=== PATIENT | male | born 1985 | race Caucasian/White ===

== ENCOUNTER 2018-03-04 14:18 | Emergency (ER) | payer OTHER ==
[2018-03-04 14:38] VITALS: RESP 18
[2018-03-04] MEDS ORDERED: KETOROLAC 60 MG/2 ML VIAL IM STA (15:20)
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
--- NOTE | 2018-03-04 16:07 | XR ---
EXAMINATION TYPE: XR lumbar spine 2 or 3V DATE OF EXAM: 03/04/2018 CLINICAL HISTORY: Low back pain. Equivocal results on prior CT from earlier the same day. TECHNIQUE: Frontal and lateral images of the lumbar spine are obtained. COMPARISON: CT of the cervical, thoracic, and lumbar spine of the same date. FINDINGS: There are 5 lumbar type vertebral bodies identified. The lumbar spine shows satisfactory alignment without evidence of acute fracture or dislocation. Vertebral body heights and disk space he ights are within normal limits. Mild facet arthropathy seen at L4-5 and L5-S1. There appears to be co ngenital nonunion of the posterior elements of L5. The overlying soft tissue appears unremarkable. IMPRESSION: No acute fracture or dislocation is seen in the lumbar spine. No gross evidence of spino us process fracture of the lumbar spine is questioned on the prior CT.
[2018-03-04 16:49] VITALS: BP 156/74; PULSE 67; TEMP 97.6
== END 2018-03-04 17:14 | disposition home or self-care (01) ==
LOC: EC 14:18
DX: S39.012A Strain of muscle, fascia and tendon of lower back, initial encounter (principal); S20.412A Abrasion of left back wall of thorax, initial encounter; F17.200 Nicotine dependence, unspecified, uncomplicated; Z79.899 Other long term (current) drug therapy; W20.8XXA Other cause of strike by thrown, projected or falling object, initial encounter
CPT/HCPCS: 99283; 96372; 72100; J1885

== ENCOUNTER → 2018-03-04 | Outpatient (CLI) | payer OTHER ==
--- NOTE | 2018-03-04 11:47 | XR ---
EXAMINATION TYPE: XR chest 2V DATE OF EXAM: 03/04/2018 COMPARISON: NONE TECHNIQUE: PA and lateral views submitted. HISTORY: Pain FINDINGS: The lungs are clear and there is no pneumothorax, pleural effusion, or focal pneumonia. Sternum is not well seen. Vertebral column limited. If concern for fracture correlate with CT scan given limitat ion of the exam. IMPRESSION: 1. No acute process.
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
== END | disposition home or self-care (01) ==
LOC: RADCTMAIN 11:18
PROVIDERS: ATTEND Emergency Medicine
DX: S20.221A Contusion of right back wall of thorax, initial encounter (principal); S20.20XA Contusion of thorax, unspecified, initial encounter; S13.4XXA Sprain of ligaments of cervical spine, initial encounter; M50.30 Other cervical disc degeneration, unspecified cervical region; M47.814 Spondylosis without myelopathy or radiculopathy, thoracic region; Q76.0 Spina bifida occulta
CPT/HCPCS: 71046; 72125; 72128; 72131

== ENCOUNTER 2018-06-22 11:00 | Emergency (ER) | payer OTHER ==
[2018-06-22 11:27] VITALS: BP 109/54; PULSE 69; RESP 20; TEMP 98.2
--- NOTE | 2018-06-22 11:51 | XR ---
EXAMINATION TYPE: XR finger LT DATE OF EXAM: 06/22/2018 COMPARISON: NONE HISTORY: Left thumb pain after injury TECHNIQUE: 3 views of the left thumb were obtained. FINDINGS: There is no evidence of acute fracture or dislocation of the left first digit. No focal sof t tissue swelling or radiopaque foreign body. Osseous mineralization is within normal limits. Joint s paces are maintained. IMPRESSION: No acute fracture or dislocation of the left first digit.
--- NOTE | 2018-06-22 12:14 | ED ---
General Adult HPI - General Chief complaint: Extremity Injury, Upper Stated complaint: [facility]-Thumb Injury Time Seen by Provider: 06/22/18 11:54 Source: patient, RN notes reviewed Mode of arrival: ambulatory Limitations: no limitations - History of Present Illness Initial comments: Patient 32-year-old male presenting to the emergency room today with a chief complaint of an injury to the left thumb that occurred at work. He does admit that he was pulling up a guard rail. States they have a chain that was wrapped around and it pinched in between the guard rail on the chain at the base of the left thumb. Patient does admit some tenderness locally to the area worse with certain movements of extension flexion. Patient denies any other injury or complaint. - Related Data Home Medications Medication Instructions Recorded Confirmed Dextroamphetamine/Amphetamine 30 mg PO QAM 03/04/18 03/04/18 [Adderall Xr] Ranitidine HCl [Zantac] 75 mg PO DAILY PRN 03/04/18 03/04/18 Previous Rx's Medication Instructions Recorded Ibuprofen [Motrin] 600 mg PO Q6HR PRN #40 day 06/22/18 Allergies Allergy/AdvReac Type Severity Reaction Status Date / Time No Known Allergies Allergy Verified 06/22/18 11:27 Review of Systems ROS Statement: Those systems with pertinent positive or pertinent negative responses have been documented in the HPI. ROS Other: All systems not noted in ROS Statement are negative. Past Medical History Past Medical History: No Reported History History of Any Multi-Drug Resistant Organisms: None Reported Past Surgical History: No Surgical Hx Reported Past Psychological History: No Psychological Hx Reported Smoking Status: Current every day smoker Past Alcohol Use History: None Reported Past Drug Use History: None Reported General Exam - General Exam Comments Initial Comments: General: The patient is awake and alert, in no distress, and does not appear acutely ill. Neck: The neck is supple, there is no tenderness or JVD. Musculoskeletal: Patient has superficial abrasion to the volar aspect at the base of the left thumb. There is no bleeding. Shows good range of motion both flexion and extension. Locally tender over the base of the left thumb. No snuffbox tenderness. Pulses radial 2+. Strength 5/5. Neurological: A&O x 3. CN II-XII intact, There are no obvious motor or sensory deficits. Coordination appears grossly intact. Speech is normal. Skin: Skin is warm and dry and no rashes or lesions are noted. Psychiatric: Normal mood and affect. Limitations: no limitations Course Vital Signs 06/22/18 11:24 Temperature 98.2 F Pulse Rate 69 Respiratory 20 Rate Blood Pressure 109/54 O2 Sat by Pulse 96 Oximetry Medical Decision Making - Medical Decision Making X-ray reviewed and negative. Patient advised continued ice elevate follow-up in 7-10 days for repeat x-rays. Disposition Clinical Impression: Thumb contusion Disposition: HOME SELF-CARE Condition: Good Instructions: Contusion in Adults (ED) Additional Instructions: Please continue to ice elevate affected area at least 4 times daily. Please use ibuprofen for pain. Please follow-up in 7-10 days for repeat x-rays as discussed. Please return to emergency room for any other concerns. Prescriptions: Ibuprofen [Motrin] 600 mg PO Q6HR PRN #40 day PRN Reason: Pain Is patient prescribed a controlled substance at d/c from ED?: No Referrals: Darryl Mondragon MD [Primary Care Provider] - 1-2 days Time of Disposition: 12:13
== END 2018-06-22 12:29 | disposition home or self-care (01) ==
LOC: EC 11:00
DX: S60.012A Contusion of left thumb without damage to nail, initial encounter (principal); F17.200 Nicotine dependence, unspecified, uncomplicated; Z79.899 Other long term (current) drug therapy; W23.1XXA Caught, crushed, jammed, or pinched between stationary objects, initial encounter; Y92.69 Other specified industrial and construction area as the place of occurrence of the external cause; Y99.0 Civilian activity done for income or pay
CPT/HCPCS: 99283

== ENCOUNTER 2021-07-22 19:34 | Emergency (ER) | payer BC ==
[2021-07-22 20:13] VITALS: RESP 18; TEMP 98.4
[2021-07-22] MEDS ORDERED: CEPHALEXIN 500MG STARTER PACK 4 CAP BTL PO STA (21:42)
[2021-07-22] MEDS ORDERED: CEPHALEXIN 500 MG CAP PO STA (21:42)
[2021-07-22 21:45] VITALS: BP 137/86; PULSE 72
--- NOTE | 2021-07-22 21:45 | ED ---
Skin/Abscess/FB HPI - General Chief complaint: Skin/Abscess/Foreign Body Stated complaint: L leg pain Time Seen by Provider: 07/22/21 21:29 Source: patient, RN notes reviewed, old records reviewed Mode of arrival: ambulatory Limitations: no limitations - History of Present Illness Initial comments: This is a 35-year-old male DF for evaluation significant and severe left lower leg swelling edema and pain. Patient has no, that area. Patient does admit to significant swelling of both lower extremity's. No shortness of breath no chest pain. No fevers or other complaints MD complaint: rash, discoloration -: days(s) Tetanus Up to Date: yes Location: LLE Severity: moderate Severity scale (1-10): 4 Quality: burning, stabbing Consistency: constant Improves with: none Worsens with: none Context: none Associated symptoms: denies other symptoms Treatments Prior to Arrival: none - Related Data Home Medications Medication Instructions Recorded Confirmed Dextroamphetamine/Amphetamine 30 mg PO QAM 03/04/18 05/05/19 [Adderall Xr] Ranitidine HCl [Zantac] 150 mg PO HS PRN 06/22/18 05/05/19 Previous Rx's Medication Instructions Recorded Metoclopramide HCl [Reglan] 10 mg PO Q8H PRN 7 Days #21 tablet 05/05/19 Cephalexin [Keflex] 500 mg PO Q6HR #28 cap 07/22/21 Sulfamethox-Tmp 800-160Mg [Bactrim 1 tab PO Q12HR #14 tab 07/22/21 DS 800-160 mg] Allergies Allergy/AdvReac Type Severity Reaction Status Date / Time No Known Allergies Allergy Verified 07/22/21 20:13 Review of Systems ROS Statement: Those systems with pertinent positive or pertinent negative responses have been documented in the HPI. ROS Other: All systems not noted in ROS Statement are negative. Past Medical History Past Medical History: Hypertension, Sleep Apnea/CPAP/BIPAP History of Any Multi-Drug Resistant Organisms: None Reported Past Surgical History: No Surgical Hx Reported Past Psychological History: ADD/ADHD Smoking Status: Former smoker Past Alcohol Use History: Rare Past Drug Use History: None Reported General Exam Limitations: no limitations General appearance: alert, in no apparent distress Head exam: Present: atraumatic, normocephalic, normal inspection Eye exam: Present: normal appearance, PERRL, EOMI. Absent: scleral icterus, conjunctival injection, periorbital swelling ENT exam: Present: normal exam, mucous membranes moist Neck exam: Present: normal inspection. Absent: tenderness, meningismus, lymphadenopathy Respiratory exam: Present: normal lung sounds bilaterally. Absent: respiratory distress, wheezes, rales, rhonchi, stridor Cardiovascular Exam: Present: regular rate, normal rhythm, normal heart sounds. Absent: systolic murmur, diastolic murmur, rubs, gallop, clicks GI/Abdominal exam: Present: soft, normal bowel sounds. Absent: distended, tenderness, guarding, rebound, rigid Extremities exam: Present: normal inspection, full ROM, normal capillary refill. Absent: tenderness, pedal edema, joint swelling, calf tenderness Back exam: Present: normal inspection Neurological exam: Present: alert, oriented X3, CN II-XII intact Psychiatric exam: Present: normal affect, normal mood Skin exam: Present: warm, dry, intact, normal color. Absent: rash Course Vital Signs 07/22/21 07/22/21 20:08 21:30 Temperature 98.4 F Pulse Rate 97 72 Respiratory 18 18 Rate Blood Pressure 131/72 137/86 O2 Sat by Pulse 97 95 Oximetry - Reevaluation(s) Reevaluation #1: Medical record is reviewed Patient symptoms improved here in the ER Patient informed results and questions answered Patient is in no acute distress Medical Decision Making - Medical Decision Making 35 male with isolated swelling of left lower Shorty. Patient placed on antibiotics and can be discharged home Disposition Clinical Impression: Left leg cellulitis Disposition: HOME SELF-CARE Condition: Good Instructions (If sedation given, give patient instructions): Cellulitis (ED) Prescriptions: Sulfamethox-Tmp 800-160Mg [Bactrim DS 800-160 mg] 1 tab PO Q12HR #14 tab Cephalexin [Keflex] 500 mg PO Q6HR #28 cap Is patient prescribed a controlled substance at d/c from ED?: No Referrals: Darryl Mondragon MD [Primary Care Provider] - 1-2 days
== END 2021-07-22 21:51 | disposition home or self-care (01) ==
LOC: EC 19:34
DX: L03.116 Cellulitis of left lower limb (principal); I10 Essential (primary) hypertension; Z87.891 Personal history of nicotine dependence
CPT/HCPCS: 99283